=== PATIENT | male | born 1950 | race Caucasian/White ===

== ENCOUNTER 2018-11-28 08:11 | Day surgery (SDC) | payer OTHER ==
[~2018-11-28] VITALS: Ht 177.8 cm; Wt 88.9 kg
[~2018-11-28 08:11] MED LIST: A20IH1 IH; ASCO500C18 PO; ASPI-1197 PO; ATOR-2 PO; BUDE10.2 IH; CALC625T68 PO; CARV10CR PO; CHOL200059 PO; CITA10TA13 PO; ESOM40CA54 PO; FERS325 PO; FEXO180T94 PO; MULT-1203 PO; RANI-248 PO; SODIUM CHLORIDE 0.9% 1000ML 0 ML IV ONE; SODIUM CHLORIDE 0.9% 1000ML 1,000 ML IV ONE
[2018-11-28 09:14] VITALS: BP 120/71
[2018-11-28 10:11] VITALS: BP 111/65
[2018-11-28 10:16] VITALS: BP 129/68
[2018-11-28 10:21] VITALS: BP 128/78
[2018-11-28 10:26] VITALS: BP 125/76
[2018-11-28 10:32] VITALS: BP 135/78
== END 2018-11-28 10:45 | disposition home or self-care (01) ==
LOC: ENDO 08:11 → DAH 08:11 → ENDO 10:45
PROVIDERS: ATTEND Internal Medicine
DX: K31.89 Other diseases of stomach and duodenum (principal); K21.0 Gastro-esophageal reflux disease with esophagitis; K44.9 Diaphragmatic hernia without obstruction or gangrene; K22.2 Esophageal obstruction; D50.9 Iron deficiency anemia, unspecified; K29.50 Unspecified chronic gastritis without bleeding; G47.30 Sleep apnea, unspecified; I25.10 Atherosclerotic heart disease of native coronary artery without angina pectoris; E78.5 Hyperlipidemia, unspecified; F41.9 Anxiety disorder, unspecified; F32.9 Major depressive disorder, single episode, unspecified; I11.9 Hypertensive heart disease without heart failure; Z86.010 Personal history of colon polyps
CPT/HCPCS: 43259; 93005; A4606; J7030; 43231

== ENCOUNTER → 2019-07-05 | Outpatient (CLI) | payer OTHER ==
[~2019-07-05] MED LIST changes: -BUDE10.2 IH; -CARV10CR PO; -RANI-248 PO; -SODIUM CHLORIDE 0.9% 1000ML 0 ML IV ONE; -SODIUM CHLORIDE 0.9% 1000ML 1,000 ML IV ONE
== END | disposition home or self-care (01) ==
LOC: RAH 08:55
PROVIDERS: ATTEND Internal Medicine Gastroenterology
DX: K21.0 Gastro-esophageal reflux disease with esophagitis (principal); R10.13 Epigastric pain; K44.9 Diaphragmatic hernia without obstruction or gangrene
CPT/HCPCS: 74240